=== PATIENT | male | born 1995 ===

== ENCOUNTER 2022-10-08 16:38 | Emergency (ER) | payer BC ==
[~2022-10-08] VITALS: Ht 162 cm; Wt 61.2 kg
--- NOTE | 2022-10-08 17:12 | ED Abdominal Pain ---
General Chief Complaint: Abdominal/GI Problems Stated Complaint: BELLY BUTTON PAIN Source of Information: Patient Exam Limitations: No Limitations History of Present Illness Date Seen by Provider: Oct 08, 2022 Time Seen by Provider: 17:00 Initial Comments 27-year-old male presents to the ER with complaints of abdominal pain just below umbilicus which started on Thursday. States the pain has gotten worse since then. He was seen at [facility] on Thursday for burning with urination and this pain. He was treated for an infection with an antibiotic and an injection. Patient is uncertain of what the infection was. He denies penile discharge. He denies fevers, nausea, vomiting, diarrhea. Last bowel movement was today and normal. He is still complaining of burning with urination. Allergies and Home Medications Allergies Coded Allergies: No Allergy Information Available (Unverified , 10/08/22) Patient Home Medication List Home Medication List Reviewed: Yes Cyclobenzaprine HCl (Cyclobenzaprine HCl) 10 Mg Tablet, 10 MG PO TID Prescribed by: Natali Hendrix on 10/08/221936 Review of Systems Review of Systems Constitutional: see HPI Physical Exam Vital Signs Vital Signs - First Documented 10/08/22 10/08/22 17:10 19:47 Temp 36.2 Pulse 89 Resp 16 B/P (MAP) 134/73 (93) Pulse Ox 100 O2 Delivery Room Air Capillary Refill : Height/Weight/BMI Height: '" Weight: lbs. oz. kg; BMI Method: General Appearance: WD/WN, no apparent distress Neck: supple, normal inspection Respiratory: lungs clear, normal breath sounds, no respiratory distress, no accessory muscle use Cardiovascular: regular rate, rhythm Gastrointestinal: normal bowel sounds, soft, tenderness (Tenderness just below umbilicus) Extremities: normal range of motion, normal inspection Neurologic/Psychiatric: alert, normal mood/affect Skin: normal color, warm/dry Progress/Results/Core Measures Results/Orders Lab Results Laboratory Tests Test 10/08/22 17:11 10/08/22 17:53 Range/Units White Blood Count 8.0 4.3-11.0 10^3/uL Red Blood Count 5.16 4.30-5.52 10^6/uL Hemoglobin 14.8 13.3-17.7 g/dL Hematocrit 44 40-54 % Mean Corpuscular Volume 86 80-99 fL Mean Corpuscular Hemoglobin 29 25-34 pg Mean Corpuscular Hemoglobin Concent 34 32-36 g/dL Red Cell Distribution Width 12.3 10.0-14.5 % Platelet Count 253 130-400 10^3/uL Mean Platelet Volume 10.8 9.0-12.2 fL Immature Granulocyte % (Auto) 0 % Neutrophils (%) (Auto) 43 42-75 % Lymphocytes (%) (Auto) 44 12-44 % Monocytes (%) (Auto) 7 0-12 % Eosinophils (%) (Auto) 5 0-10 % Basophils (%) (Auto) 1 0-10 % Neutrophils # (Auto) 3.5 1.8-7.8 10^3/uL Lymphocytes # (Auto) 3.5 1.0-4.0 10^3/uL Monocytes # (Auto) 0.6 0.0-1.0 10^3/uL Eosinophils # (Auto) 0.4 H 0.0-0.3 10^3/uL Basophils # (Auto) 0.1 0.0-0.1 10^3/uL Immature Granulocyte # (Auto) 0.0 0.0-0.1 10^3/uL Sodium Level 138 135-145 MMOL/L Potassium Level 3.9 3.6-5.0 MMOL/L Chloride Level 105 98-107 MMOL/L Carbon Dioxide Level 22 21-32 MMOL/L Anion Gap 11 5-14 MMOL/L Blood Urea Nitrogen 15 7-18 MG/DL Creatinine 0.86 0.60-1.30 MG/DL Estimat Glomerular Filtration Rate 123 BUN/Creatinine Ratio 17 Glucose Level 96 70-105 MG/DL Calcium Level 9.6 8.5-10.1 MG/DL Corrected Calcium 8.5-10.1 MG/DL Total Bilirubin 0.3 0.1-1.0 MG/DL Aspartate Amino Transf (AST/SGOT) 25 5-34 U/L Alanine Aminotransferase (ALT/SGPT) 25 0-55 U/L Alkaline Phosphatase 83 40-136 U/L C-Reactive Protein High Sensitivity 0.08 0.00-0.50 MG/DL Total Protein 7.2 6.4-8.2 GM/DL Albumin 4.6 H 3.2-4.5 GM/DL Urine Color YELLOW Urine Clarity CLEAR Urine pH 6.0 5-9 Urine Specific [place] <=1.005 1.016-1.022 Urine Protein NEGATIVE NEGATIVE Urine Glucose (UA) NEGATIVE NEGATIVE Urine Ketones NEGATIVE NEGATIVE Urine Nitrite NEGATIVE NEGATIVE Urine Bilirubin NEGATIVE NEGATIVE Urine Urobilinogen 0.2 < = 1.0 MG/DL Urine Leukocyte Esterase NEGATIVE NEGATIVE Urine RBC (Auto) NEGATIVE NEGATIVE Urine RBC NONE /HPF Urine WBC NONE /HPF Urine Crystals NONE /LPF Urine Bacteria NEGATIVE /HPF Urine Casts NONE /LPF Urine Mucus NEGATIVE /LPF Urine Culture Indicated NO My Orders Orders - NATALI HENDRIX APRN Ua Culture If Indicated (10/08/22 17:00) Comprehensive Metabolic Panel (10/08/22 17:07) Cbc With Automated Diff (10/08/22 17:07) Ct Abd/Pelv W (Appendicitis) (10/08/22 17:07) Hs C Reactive Protein (10/08/22 17:07) Chlamydia Trachomatis Urine (10/08/22 17:07) Neis Chace Dna Urine Test (10/08/22 17:07) Iohexol Injection (Omnipaque 350 Mg/Ml 1 (10/08/22 17:15) Received Contrast (Hold Metformin- Contr (10/08/22 17:15) Ns (Ivpb) (Sodium Chloride 0.9% Ivpb Bag (10/08/22 17:15) Ketorolac Injection (Toradol Injection) (10/08/22 17:15) Ed Iv/Invasive Line Start (10/08/22 18:03) Ns Iv 1000 Ml (Sodium Chloride 0.9%) (10/08/22 18:15) Orphenadrine Inj (Ed Only) (Norflex Inje (10/08/22 18:45) Medications Given in ED Vital Signs/I&O 10/08/22 10/08/22 17:10 19:47 Temp 36.2 Pulse 89 98 Resp 16 20 B/P (MAP) 134/73 (93) 127/79 Pulse Ox 100 99 O2 Delivery Room Air Progress Progress Note : Progress Note Patient seen and evaluated, resting comfortably in bed, no acute distress. Based on exam and symptoms, concern for appendicitis, UTI, STD. Work-up initiated including CBC, CMP, CRP, CT abdomen pelvis. IV fluids ordered. Patient gave permission for me to call [facility] to review his visit from Thursday. [facility] reports that patient was given 500 mg IM Rocephin and a prescription for doxycycline 100 mg twice a day for 7 days. His GC/chlamydia were negative. Urinalysis was normal. 1844 CT and labs reviewed. CBC grossly normal. CMP grossly normal, albumin slightly elevated 4.6. Urinalysis negative for infection. CT abdomen pelvis shows no acute abnormality. Results discussed with patient. Patient reports some improvement in pain after Toradol. He states that the pain is mostly when he takes a deep breath or when he stretches. His pain could be abdominal wall pain. Will try Norflex to see if this helps. 1931 patient reports pain is gone after Norflex. Will discharge with prescription for Flexeril, since this pain may be muscular in nature. The burning with urination may be related to dehydration. Patient reports that he works in a hot environment, does not drink a lot of water, but does drink Gatorade. Patient instructed to try liquid IV, consider Gatorade since there is a lot of sugar which can be dehydrated. Discharge instructions and return precautions provided. Diagnostic Imaging Diagonstic Imaging: CT Plain Films/CT/US/NM/MRI: abdomen, pelvis Comments [facility]. [place], [place] NAME: LULA ARROYO [facility] REC#: [id number] PT STATUS: DEP ER : 1995 PHYSICIAN: NATALI HENDRIX APRN ADMIT DATE: 10/08/22/ER Signed Date of Exam:10/08/22 CT ABD/PELV W (APPENDICITIS) CLINICAL INDICATION: Patient is having bellybutton pain and states his penis hurts when he pees. EXAM: Axial CT scan of the abdomen and pelvis performed with 70 mL of Omnipaque 350 IV contrast. Sagittal and coronal reformatted images are created. Auto Exposure Controls were utilized during the CT exam to meet ALARA standards for radiation dose reduction. COMPARISON: None. FINDINGS: The visualized lung bases are clear. Bones show no significant abnormality. The liver, spleen, pancreas, gallbladder, and adrenal glands are unremarkable. Both kidneys are unremarkable with no hydronephrosis, stone, or mass. Bladder is fluid-filled and unremarkable. Prostate gland is unremarkable. The sigmoid colon and left colon is decompressed which may related to incomplete distention. The appendix is unremarkable. There is no intestinal obstruction. Stomach is decompressed with wall thickening which may be related to incomplete distention. There is no intra-abdominal free air or free fluid. There is no lymphadenopathy. The extra-abdominal and extrapelvic soft tissue structures are unremarkable. The inguinal canal regions and visualized portions of the base of the penis is unremarkable. IMPRESSION: There is no CT evidence of acute abdominal or pelvic process. Dictated by: Dictated on workstation # [id number] Dict: 10/08/22 1729 Trans: 10/08/222215 [facility] [id number] Interpreted by: MARIOLA CASTILLO MD Electronically signed by: MARIOLA CASTILLO MD 10/08/222215 Departure Impression Primary Impression: Abdominal wall pain Additional Impression: Dysuria Disposition: 01 HOME, SELF-CARE Condition: Stable Departure-Patient Inst. Decision time for Depature: 19:34 Referrals: [facility] [place] Instructions: Abdominal Muscle Strain Add. Discharge Instructions: Increase your water intake. You may try Liquid IV instead of Gatorade to help increase your electrolyte intake and to avoid too much sugar which can be dehydrating. Take cyclobenzaprine as needed for pain, this medication can make you sleepy. You may continue to take naproxen with food and Tylenol as needed for pain. Return for severe pain, recurrent vomiting, or any other new, concerning, or worsening symptoms. All discharge instructions reviewed with patient and/or family. Voiced understanding. Scripts Cyclobenzaprine HCl (Cyclobenzaprine HCl) 10 Mg Tablet 10 MG PO TID, #21 TAB 0 Refills Prov: NATALI HENDRIX APRN 10/08/22 NATALI HENDRIX APRN Oct 08, 2022 17:11
[2022-10-08] MEDS ORDERED: IOHEXOL 350 MG/ML 100 ML (OMNIPAQUE 350) VIAL IV ONE (17:15)
[2022-10-08] MEDS ORDERED: KETOROLAC 15 MG/ML VIAL IVP ONE (17:15)
[2022-10-08] MEDS ORDERED: NS 100 ML (IVPB) BAG IV ONE (17:15)
[2022-10-08] MEDS ORDERED: HOLD METFORMIN - RECEIVED CONTRAST 20 ML VIAL IV SCH (17:15)
[2022-10-08 17:17] LABS: BASOPHILS # (AUTO) 0.1 10^3/uL (0.0-0.1); BASOPHILS % (AUTO) 1 % (0-10); EOSINOPHILS # (AUTO) 0.4 10^3/uL (0.0-0.3); EOSINOPHILS % (AUTO) 5 % (0-10); HEMATOCRIT 44 % (40-54); HEMOGLOBIN 14.8 g/dL (13.3-17.7); LYMPHOCYTES # (AUTO) 3.5 10^3/uL (1.0-4.0); LYMPHOCYTES % (AUTO) 44 % (12-44); MEAN CORPUSCULAR HEMOGLOBIN 29 pg (25-34); MEAN CORPUSCULAR HGB CONC 34 g/dL (32-36); MEAN CORPUSCULAR VOLUME 86 fL (80-99); MEAN PLATELET VOLUME 10.8 fL (9.0-12.2); MONOCYTES # (AUTO) 0.6 10^3/uL (0.0-1.0); MONOCYTES % (AUTO) 7 % (0-12); NEUTROPHILS # (AUTO) 3.5 10^3/uL (1.8-7.8); NEUTROPHILS % (AUTO) 43 % (42-75); PLATELET COUNT 253 10^3/uL (130-400)
[2022-10-08 17:25] LABS: ALBUMIN 4.6 GM/DL (3.2-4.5); CHLORIDE 105 MMOL/L (98-107); POTASSIUM 3.9 MMOL/L (3.6-5.0); SODIUM 138 MMOL/L (135-145)
[2022-10-08 17:26] LABS: CALCIUM 9.6 MG/DL (8.5-10.1)
[2022-10-08 17:27] LABS: GLUCOSE 96 MG/DL (70-105)
[2022-10-08 17:28] LABS: TOTAL PROTEIN 7.2 GM/DL (6.4-8.2)
[2022-10-08 17:29] LABS: BILIRUBIN,TOTAL 0.3 MG/DL (0.1-1.0); CARBON DIOXIDE 22 MMOL/L (21-32)
[2022-10-08 17:31] LABS: ALKALINE PHOSPHATASE 83 U/L (40-136); CREATININE SERUM 0.86 MG/DL (0.60-1.30); GFR ESTIMATED 123
[2022-10-08 17:32] LABS: BUN/CREATININE RATIO 17
[2022-10-08 17:34] LABS: ALANINE AMINOTRANSFERASE 25 U/L (0-55)
--- NOTE | 2022-10-08 17:37 | Diagnostic Imaging Report ---
CLINICAL INDICATION: Patient is having bellybutton pain and states his penis hurts when he pees. EXAM: Axial CT scan of the abdomen and pelvis performed with 70 mL of Omnipaque 350 IV contrast. Sagittal and coronal reformatted images are created. Auto Exposure Controls were utilized during the CT exam to meet ALARA standards for radiation dose reduction. COMPARISON: None. FINDINGS: The visualized lung bases are clear. Bones show no significant abnormality. The liver, spleen, pancreas, gallbladder, and adrenal glands are unremarkable. Both kidneys are unremarkable with no hydronephrosis, stone, or mass. Bladder is fluid-filled and unremarkable. Prostate gland is unremarkable. The sigmoid colon and left colon is decompressed which may related to incomplete distention. The appendix is unremarkable. There is no intestinal obstruction. Stomach is decompressed with wall thickening which may be related to incomplete distention. There is no intra-abdominal free air or free fluid. There is no lymphadenopathy. The extra-abdominal and extrapelvic soft tissue structures are unremarkable. The inguinal canal regions and visualized portions of the base of the penis is unremarkable. IMPRESSION: There is no CT evidence of acute abdominal or pelvic process. Dictated by: Dictated on workstation # [id number]
[2022-10-08 17:56] LABS: BILIRUBIN,URINE NEGATIVE (NEGATIVE); CLARITY,URINE CLEAR; COLOR,URINE YELLOW; GLUCOSE, URINE (UA) NEGATIVE (NEGATIVE); KETONES,URINE NEGATIVE (NEGATIVE); LEUKOCYTE ESTERASE ,URINE NEGATIVE (NEGATIVE); NITRITE,URINE NEGATIVE (NEGATIVE); PROTEIN,URINE NEGATIVE (NEGATIVE)
[2022-10-08 18:05] LABS: BACTERIA,URINE NEGATIVE /HPF
[2022-10-08] MEDS ORDERED: NS IV 1000 ML 1,000 ML IV SCH (18:15)
[2022-10-08] MEDS ORDERED: ORPHENADRINE 60 MG/2 ML (NORFLEX) AMP (ED ONLY) IV ONE (18:45)
[2022-10-08] MEDS ORDERED: CYCL10TA25 PO (19:37)
[2022-10-08 19:47] VITALS: BP 127/79
== END 2022-10-08 19:57 | disposition home or self-care (01) ==
LOC: ER 16:41
DX: R10.9 Unspecified abdominal pain (principal); R30.0 Dysuria
CPT/HCPCS: 36415; 74177; 80053; 81000; 85025; 86141; 87491; 87591